=== PATIENT | male | born 1990 | race African-American/Black ===

== ENCOUNTER 2017-02-23 09:31 | Emergency (ER) | payer SELFPAY ==
[~2017-02-23] VITALS: Ht 177.8 cm; Wt 60.0 kg
[2017-02-23 09:34] VITALS: BP 117/60; PULSE 60; RESP 24; TEMP 98.5; O2SAT 100
--- NOTE | 2017-02-23 10:01 | PD ---
HPI . right shoulder injury Chief Complaint: Injury Time Seen by Provider: 09:56 Travel History International Travel<30 days: No Contact w/Intl Traveler<30days: No Traveled to known affect area: No History of Present Illness HPI 26 yr old male with no PMH here with right shoulder injury that occurred last night while playing football. He scored a touchdown and slid into the end zone to celebrate and fell on his right shoulder. He is now experiencing pain. He has an obvious deformity of the right shoulder and collar bone it seems to be moved anteriorly, displaced. The head of the humerus is very prominent and appears out of location. He has severe pain. He denies any head injury. PFSH Past Medical History Medical History: Denies Significant Hx Social History Alcohol Use: No Tobacco Use: No Substance Use: No Allergies-Medications (Allergen,Severity, Reaction): Coded Allergies: No Known Allergies (Unverified , 02/23/17) Reported Meds & Prescriptions Reported Meds & Active Scripts Active No Active Prescriptions or Reported Medications Review of Systems General / Constitutional: No: Fever Eyes: No: Visual changes HENT: No: Headaches Cardiovascular: No: Chest Pain or Discomfort Respiratory: No: Shortness of Breath Gastrointestinal: No: Abdominal Pain Genitourinary: No: Dysuria Musculoskeletal: Positive: Pain (r shoulder) Skin: No Rash Neurologic: No: Weakness Psychiatric: No: Depression Endocrine: No: Polydipsia Hematologic/Lymphatic: No: Easy Bruising Physical Exam Narrative GENERAL: AAO x 3, no acute distress, Well-nourished, well-developed patient. SKIN: Warm and dry. No visible rashes or bruising. HEAD: Normocephalic and atraumatic. EYES: No scleral icterus. No injection or drainage. ENT: No nasal drainage noted. Mucous membranes pink. Airway patent. NECK: Supple, trachea midline. No JVD. CARDIOVASCULAR: Regular rate and rhythm without murmurs, gallops, or rubs. RESPIRATORY: Breath sounds equal bilaterally. No accessory muscle use. No rhonchi or rales. GASTROINTESTINAL: Abdomen soft, non-tender, nondistended. EXTREMITIES: No cyanosis or edema. Right shoulder obvious deformity. Shoulder is moved anteriorly and displaced. The collarbone is also anteriorly and displaced. The head of the humerus is very prominent. Patient has no movement in this extremity. 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 He reports numbness with movement. BACK: Nontender without obvious deformity. No CVA tenderness. PSYCH: AAO x 3, normal affect. Data Data Last Documented VS Vital Signs Date Time Temp Pulse Resp B/P Pulse Ox O2 Delivery O2 Flow Rate FiO2 02/23/17 09:34 98.5 60 24 117/60 100 Room Air MDM Medical Decision Making Medical Screen Exam Complete: Yes Emergency Medical Condition: Yes Medical Record Reviewed: Yes Differential Diagnosis dislocated shoulder, ac joint separation, clavicle fracture, humerus fracture Narrative Course 26 yr old male with no PMH here with right shoulder injury that occurred last night while playing football. He scored a touchdown and slid into the end zone to celebrate and fell on his right shoulder. He is now experiencing pain. He has an obvious deformity of the right shoulder and collar bone it seems to be moved anteriorly, displaced. The head of the humerus is very prominent and appears out of location. He has severe pain. He denies any head injury. Patient seen and examined. He is hemodynamically stable. He seems to have a obvious injury of the right shoulder. He will require a medical bed for further treatment. I have transferred him to a medical bed. That provider will determine his disposition. Scripts No Active Prescriptions or Reported Meds Nancy Montano Feb 23, 2017 10:00
[2017-02-23] MEDS ORDERED: MORPHINE SULFATE 4 MG/ML INJ IV PUSH ONE (11:15)
[2017-02-23] MEDS ORDERED: ONDANSETRON HCL 4 MG/2 ML VIAL IV PUSH ONE (11:15)
--- NOTE | 2017-02-23 12:14 | RADRPT ---
EXAM DATE/TIME: 02/23/2017 11:58 [facility] COMPARISON: No previous studies available for comparison. INDICATIONS : Right shoulder pain after fall. MEDICAL HISTORY : None. SURGICAL HISTORY : None. ENCOUNTER: Initial ACUITY: 2 days PAIN SCORE: 10/10 LOCATION: Right shoulder FINDINGS: There is anterior inferior dislocation of the humeral head with respect to the glenoid. No obvious fr acture fragments are seen. CONCLUSION: Right shoulder dislocation. Robert Guzman MD on February 23, 2017 at 12:12 Board Certified Radiologist. This report was verified electronically.
[2017-02-23] MEDS ORDERED: PROPOFOL 500 MG/50 ML BTL IV ONE (12:15)
[2017-02-23 12:29] VITALS: O2SAT 100
[2017-02-23 12:33] VITALS: BP 129/86; PULSE 57; RESP 18; O2SAT 99
--- NOTE | 2017-02-23 12:35 | PD ---
Physical Exam Date Seen by Provider: Feb 23, 2017 Time Seen by Provider: 12:33 Narrative The patient is a 26-year-old Nichol male hit a right shoulder dislocation. The patient's attending physician, Dr. Roche, asked me to assist with reduction of the right shoulder dislocation while she administered conscious sedation. Data Data Last Documented VS Vital Signs Date Time Temp Pulse Resp B/P Pulse Ox O2 Delivery O2 Flow Rate FiO2 02/23/17 09:34 98.5 60 24 117/60 100 Room Air Orders Morphine Inj (Morphine Inj) (02/23/17 11:15) Ondansetron Inj (Zofran Inj) (02/23/17 11:15) Shoulder, Limited(2vws) (02/23/17 ) Propofol 500 Mg/50 Ml Inj (Diprivan 500 (02/23/17 12:15) MDM Medical Record Reviewed: Yes Supervised Visit with DARCIE: No Interpretation(s) Last Impressions Shoulder X-Ray 02/23/17 0000 Signed Impressions: Service Date/Time: Thursday, February 23, 2017 11:58 - CONCLUSION: Right shoulder dislocation. Robert Guzman MD Postreduction x-ray reveals reduction of the previous dislocation. Procedures Procedure Narrative The patient had conscious sedation that was performed by the attending physician , Dr. Roche. After the patient was sedated using propofol by the attending physician, I reduced the right shoulder dislocation with abduction and external rotation of the shoulder. The shoulder was easily reduced. Positive right radial pulse afterwards. Postreduction x-ray reveals proper reduction. The patient tolerated the procedure without difficulty and there was no obvious complications. Diagnosis Primary Impression: Closed dislocation of right shoulder Qualified Code: S43.004A - Closed dislocation of right shoulder, initial encounter Additional Instruction: Sling as directed. Follow-up with orthopedics and your primary physician. Scripts No Active Prescriptions or Reported Meds Disposition: 01 DISCHARGE HOME Condition: Stable Erasto Reynoso MD Feb 23, 2017 12:35
[2017-02-23 12:45] VITALS: BP 121/71; PULSE 52; RESP 17; O2SAT 100
--- NOTE | 2017-02-23 12:56 | RADRPT ---
EXAM DATE/TIME: 02/23/2017 12:52 [facility] COMPARISON: No previous studies available for comparison. INDICATIONS : Post reduction shoulder MEDICAL HISTORY : None. SURGICAL HISTORY : None. ENCOUNTER: Initial ACUITY: 1 day PAIN SCORE: 2/10 LOCATION: Right shoulder FINDINGS: Two view examination of the right shoulder demonstrates no evidence of fracture or dislocation. The glenohumeral and acromioclavicular joints are maintained. Bony mineralization is normal. CONCLUSION: Unremarkable limited examination of the right shoulder. Robert Guzman MD on February 23, 2017 at 12:54 Board Certified Radiologist. This report was verified electronically.
[2017-02-23 13:00] VITALS: BP 122/70; PULSE 60; RESP 18; O2SAT 100
[2017-02-23] MEDS ORDERED: HYDR-3533 PO ×2 (13:13→14:03)
[2017-02-23 13:15] VITALS: BP 123/71; PULSE 55; RESP 18; O2SAT 100
--- NOTE | 2017-02-23 13:15 | PD ---
Physical Exam Narrative General: 26 y/o patient who is uncomfortable Skin: Warm and dry Eyes: pupils are equal NECK: no pain with palpation and ROM in midline Cardiovascular: Regular rate and rhythm Respiratory: normal respiratory effort noted Abdomen: soft, nontender, nondistended Extremities: Pain with palpation of right shoulder with obvious dislocation, no lacerations over, neurovascularly intact, no pain with rom of other joints Neuro: awake, alert, sensation and motor grossly intact Data Data Last Documented VS Vital Signs Date Time Temp Pulse Resp B/P Pulse Ox O2 Delivery O2 Flow Rate FiO2 02/23/17 12:33 57 18 129/86 99 Room Air 02/23/17 09:34 98.5 Orders Morphine Inj (Morphine Inj) (02/23/17 11:15) Ondansetron Inj (Zofran Inj) (02/23/17 11:15) Shoulder, Limited(2vws) (02/23/17 ) Propofol 500 Mg/50 Ml Inj (Diprivan 500 (02/23/17 12:15) Shoulder, Limited(2vws) (02/23/17 ) MDM Supervised Visit with DARCIE: No (triage note reviewed but evaluated on my own in pod) Interpretation(s) Last 24 hours Impressions Shoulder X-Ray 02/23/17 0000 Signed Impressions: Service Date/Time: Thursday, February 23, 2017 12:52 - CONCLUSION: Unremarkable limited examination of the right shoulder. Robert Guzman MD Shoulder X-Ray 02/23/17 0000 Signed Impressions: Service Date/Time: Thursday, February 23, 2017 11:58 - CONCLUSION: Right shoulder dislocation. Robert Guzman MD Differential Diagnosis Fracture, dislocation, strain Narrative Course X-ray ordered while I was with a critical patient. Updated patient about dislocation and agrees to sedation for reduction after scapular manipulation and gentle external rotation unable to reduce shoulder. I performed sedation while Dr. Reynoso reduced shoulder Patient denies any new complaints and states that they are feeling better after reduction, patient happy with care, all questions answered. Patient knows that follow up is incumbent on them and to return to the emergency room immediately if new or worsening symptoms develop. Patient given strict return precautions, vitals reviewed and are normal, agrees to further workup as an outpatient. Procedures Procedure Narrative After the risks and benefits were discussed the following procedure was performed: MODERATE SEDATION: The patient was placed on a monitoring tech and pulse oximetry. An ambu bag and suction was immediately available at bedside. The patient was monitored by the nurse and RT. Oxygen saturation, heart rate and blood pressure were monitored. Procedural sedation was acheived using 60mg of propofol . The patient was observed until awake and alert. Procedural Sedation time in attendance was 12 minutes. Diagnosis Primary Impression: Closed dislocation of right shoulder Qualified Code: S43.004A - Closed dislocation of right shoulder, initial encounter Patient Instructions: General Instructions, Moderate Sedation (ED) Additional Instruction: Sling as directed. Follow-up with orthopedics and your primary physician this week. Med/Other Pt SpecificInfo: Prescription(s) given Scripts Hydrocodone-Acetaminophen (Lortab)5-325 Mg Tab1 Tab PO Q6H PRN (PAIN) #15 TAB Prov:Yeimi Roche MD 02/23/17 Disposition: 01 DISCHARGE HOME Condition: Stable Yeimi Roche MD Feb 23, 2017 13:15
== END 2017-02-23 14:26 | disposition home or self-care (01) ==
LOC: NEPC 09:31
DX: S43.014A Anterior dislocation of right humerus, initial encounter (principal); X58.XXXA Exposure to other specified factors, initial encounter; Y93.61 Activity, american tackle football; Y92.9 Unspecified place or not applicable; Y99.8 Other external cause status
CPT/HCPCS: 23650; 73030; 96374; 96375; 99156; 99283; J2270; J2405